=== PATIENT | male | born 1985 | race Caucasian/White ===

== ENCOUNTER 2016-10-20 16:25 | Emergency (ER) | payer OTHER ==
[~2016-10-20] VITALS: Ht 182.9 cm; Wt 81.6 kg
[2016-10-20 17:16] VITALS: BP 137/89
--- NOTE | 2016-10-20 17:20 | NUR ---
[facility] EVALUATING PT IN OVERFLOW.
[2016-10-20 17:24] VITALS: BP 137/89
--- NOTE | 2016-10-20 17:31 | NUR ---
Patient discharged with v/s stable. Written and verbal after care instructions given and explained. Patient alert, oriented and verbalized understanding of instructions. Ambulatory with steady gait. All questions addressed prior to discharge. ID band removed. Patient advised to follow up with PMD. Rx of PEN VK AND TYLENOL NO 3 given. Patient educated on indication of medication including possible reaction and side effects. Opportunity to ask questions provided and answered.
== END 2016-10-20 17:30 | disposition home or self-care (01) ==
LOC: MED 16:25
DX: K08.89 Other specified disorders of teeth and supporting structures (principal); Z86.19 Personal history of other infectious and parasitic diseases
CPT/HCPCS: 99283

== ENCOUNTER 2019-08-27 22:03 | Emergency (ER) | payer OTHER ==
[~2019-08-27] VITALS: Ht 182.9 cm; Wt 76.2 kg
[2019-08-27 22:11] VITALS: BP 126/83
[2019-08-27] MEDS ORDERED: NACL 0.9% 1,000 ML IV ONE (22:30)
[2019-08-27 22:58] LABS: BASOPHILS # (AUTO) 0.1 K/uL (0.00-0.22); EOSINOPHILS # (AUTO) 0.1 K/uL (0-0.4); EOSINOPHILS % (AUTO) 1.2 % (0.0-4.0); HEMATOCRIT 36.4 % (36-52); HEMOGLOBIN 12.1 g/dL (12.0-18.0); LYMPHOCYTES # (AUTO) 0.8 K/uL (2.0-11.5); MEAN CORPUSCULAR HEMOGLOBIN 30 pg (27-31); MEAN CORPUSCULAR HGB CONC 33 g/dL (33-37); MEAN CORPUSCULAR VOLUME 89.4 fL (80-94); MONOCYTES # (AUTO) 0.8 K/uL (0.8-1.0); MONOCYTES % (AUTO) 8.4 % (1.7-9.3); NEUTROPHILS # (AUTO) 7.5 K/uL (1.8-7.7); NEUTROPHILS % (AUTO) 80.6 % (42.2-75.2); PLATELET COUNT (AUTO) 194 K/uL (140-450); RED BLOOD CELL COUNT(AUTO) 4.07 MIL/uL (4.20-6.10); RED CELL DISTRIBUTION WIDTH 13.4 % (11.6-13.7); WHITE BLOOD COUNT (AUTO) 9.2 K/uL (4.8-10.8)
[2019-08-27 23:10] LABS: ALBUMIN 3.3 g/dL (3.4-5.0); ANION GAP 9.7 (8-16); CARBON DIOXIDE 28.4 mmol/L (21-32); CREATININE 1.1 mg/dL (0.6-1.3); POTASSIUM 5.1 mmol/L (3.5-5.1); TOTAL BILIRUBIN 0.3 mg/dL (0.0-1.0)
[2019-08-27 23:12] LABS: LYMPHOCYTES % (AUTO) 8.8 % (20.5-51.1)
[2019-08-27 23:19] LABS: CREATINE KINASE MB 6.7 ng/mL (0-3.6)
[2019-08-28] MEDS ORDERED: NACL 0.9% 1,000 ML IV ONE (00:05)
[2019-08-28 00:31] LABS: BARBITURATE, URINE NEGATIVE ng/ml (NEG <=200); BENZODIAZEPINE, URINE NEGATIVE ng/mL (NEG <=200); CANNABINOID, URINE NEGATIVE ng/mL (NEG <=50); COCAINE, URINE NEGATIVE ng/mL (NEG <=300); OPIATE, URINE NEGATIVE ng/mL (NEG <=2000); PHENCYCLIDINE SCREEN,URINE NEGATIVE ng/mL (NEG <=25)
[2019-08-28 01:22] VITALS: BP 126/83
== END 2019-08-28 01:19 | disposition home or self-care (01) ==
LOC: MED 22:03
DX: M62.82 Rhabdomyolysis (principal); J06.9 Acute upper respiratory infection, unspecified; E86.0 Dehydration; I51.9 Heart disease, unspecified
CPT/HCPCS: 36415; 71045; 80053; 80305; 82550; 82553; 83690; 84484; 85025; 85379; 87804; 93005; 96360; 99285; J7030; Q0092

== ENCOUNTER 2023-08-03 20:04 | Emergency (ER) | payer OTHER ==
[~2023-08-03] VITALS: Ht 182.9 cm; Wt 68.0 kg
[2023-08-03 20:08] VITALS: BP 109/74; PULSE 69; RESP 16; TEMP 97.3; O2SAT 98
== END 2023-08-04 00:22 | disposition left against medical advice (07) ==
LOC: MED 20:04
DX: R00.2 Palpitations (principal); Z53.21 Procedure and treatment not carried out due to patient leaving prior to being seen by health care provider
CPT/HCPCS: 93005; 99281

== ENCOUNTER 2023-11-23 11:55 | Emergency (ER) | payer OTHER ==
[~2023-11-23] VITALS: Ht 182.9 cm; Wt 62.6 kg
[2023-11-23 12:13] VITALS: BP 107/68; PULSE 59; RESP 18; TEMP 97; O2SAT 100
[2023-11-23 13:32] LABS: HEMOGLOBIN 13.6 g/dL (12.0-18.0); MEAN CORPUSCULAR HEMOGLOBIN 28 pg (27-31); MEAN CORPUSCULAR HGB CONC 34 g/dL (33-37); MEAN CORPUSCULAR VOLUME 83.4 fL (80-94); PLATELET COUNT (AUTO) 173 K/uL (140-450); RED BLOOD CELL COUNT(AUTO) 4.79 MIL/uL (4.20-6.10); RED CELL DISTRIBUTION WIDTH 13.5 % (11.6-13.7)
[2023-11-23 13:43] LABS: ANION GAP 11.2 (8-16); CALCIUM 9.3 mg/dL (8.5-10.1); CARBON DIOXIDE 28.2 mmol/L (21-32); CREATININE 0.7 mg/dL (0.6-1.3); POTASSIUM 4.4 mmol/L (3.5-5.1)
[2023-11-23 13:58] LABS: CREATINE KINASE, TOTAL 67 U/L (39-308); MAGNESIUM 2.1 mg/dL (1.8-2.4); PHOSPHORUS 3.7 mg/dL (2.5-4.9); THYROID STIMULATING HORMONE 2.17 uIU/mL (0.34-3.74)
[2023-11-23 14:21] VITALS: BP 133/76; PULSE 81; RESP 18; TEMP 98; O2SAT 99
[2023-11-23 14:27] LABS: EOSINOPHILS % (MANUAL) 1 % (0-4); LYMPHOCYTES % (MANUAL) 23 % (20-46)
[2023-11-23 14:28] LABS: MONOCYTES % (MANUAL) 10 % (5-12); PLATELET ESTIMATE ADEQUATE
== END 2023-11-23 14:21 | disposition home or self-care (01) ==
LOC: MED 11:55
DX: R00.2 Palpitations (principal); R06.02 Shortness of breath; E86.0 Dehydration; Z86.79 Personal history of other diseases of the circulatory system
CPT/HCPCS: 36415; 80048; 82550; 83735; 84100; 84443; 84484; 85025; 93005; 99284

== ENCOUNTER 2023-12-07 03:41 | Emergency (ER) | payer OTHER ==
[~2023-12-07] VITALS: Ht 182.9 cm; Wt 67.1 kg
[2023-12-07 03:52] VITALS: BP 113/75; PULSE 68; RESP 14; TEMP 97.5; O2SAT 99
[2023-12-07 03:59] VITALS: RESP 14; TEMP 97.5
[2023-12-07 04:05] VITALS: O2SAT 99
[2023-12-07 04:44] VITALS: BP 110/72; PULSE 60
== END 2023-12-07 04:44 | disposition home or self-care (01) ==
LOC: MED 03:41
DX: R00.2 Palpitations (principal); R07.9 Chest pain, unspecified; F14.90 Cocaine use, unspecified, uncomplicated; Z79.899 Other long term (current) drug therapy
CPT/HCPCS: 93005; 99283

== ENCOUNTER 2023-12-26 23:25 | Emergency (ER) | payer OTHER ==
[~2023-12-26] VITALS: Ht 182.9 cm; Wt 72.6 kg
[2023-12-26 23:29] VITALS: BP 111/75; PULSE 61; RESP 16; TEMP 97.1; O2SAT 98
[2023-12-27 00:27] LABS: BASOPHILS # (AUTO) 0.1 K/uL (0.00-0.22); BASOPHILS % (AUTO) 0.9 % (0.0-2.0); EOSINOPHILS # (AUTO) 0.1 K/uL (0-0.4); EOSINOPHILS % (AUTO) 2.3 % (0.0-4.0); HEMOGLOBIN 13.4 g/dL (12.0-18.0); LYMPHOCYTES # (AUTO) 1.7 K/uL (2.0-11.5); LYMPHOCYTES % (AUTO) 28.8 % (20.5-51.1); MEAN CORPUSCULAR HEMOGLOBIN 28 pg (27-31); MEAN CORPUSCULAR HGB CONC 33 g/dL (33-37); MONOCYTES # (AUTO) 0.4 K/uL (0.8-1.0); MONOCYTES % (AUTO) 7.3 % (1.7-9.3); NEUTROPHILS # (AUTO) 3.6 K/uL (1.8-7.7); NEUTROPHILS % (AUTO) 60.7 % (42.2-75.2); PLATELET COUNT (AUTO) 164 K/uL (140-450); RED BLOOD CELL COUNT(AUTO) 4.82 MIL/uL (4.20-6.10); WHITE BLOOD COUNT (AUTO) 5.9 K/uL (4.8-10.8)
[2023-12-27 00:38] LABS: ANION GAP 13.5 (8-16); CALCIUM 9.2 mg/dL (8.5-10.1); CARBON DIOXIDE 27.2 mmol/L (21-32); CREATININE 0.8 mg/dL (0.6-1.3); POTASSIUM 3.7 mmol/L (3.5-5.1)
[2023-12-27 00:46] LABS: PHOSPHORUS 4.1 mg/dL (2.5-4.9)
[2023-12-27 01:08] VITALS: BP 111/75; PULSE 61; RESP 16; TEMP 97.1; O2SAT 96
== END 2023-12-27 01:08 | disposition home or self-care (01) ==
LOC: MED 23:25
DX: R00.2 Palpitations (principal); R07.9 Chest pain, unspecified; F14.10 Cocaine abuse, uncomplicated; R53.1 Weakness; R42 Dizziness and giddiness; R11.0 Nausea; R06.02 Shortness of breath; Z86.79 Personal history of other diseases of the circulatory system
CPT/HCPCS: 36415; 71045; 80048; 83735; 84100; 84484; 85025; 93005; 99285; Q0092

== ENCOUNTER 2024-02-22 22:50 | Emergency (ER) | payer OTHER ==
[~2024-02-22] VITALS: Ht 182.9 cm; Wt 64.6 kg
[2024-02-22 22:55] VITALS: BP 104/67; PULSE 74; RESP 20; TEMP 98.3; O2SAT 98
[2024-02-23 00:45] LABS: BASOPHILS # (AUTO) 0.2 K/uL (0.00-0.22); BASOPHILS % (AUTO) 4.2 % (0.0-2.0); EOSINOPHILS # (AUTO) 0.2 K/uL (0-0.4); EOSINOPHILS % (AUTO) 4.1 % (0.0-4.0); HEMOGLOBIN 13.8 g/dL (12.0-18.0); LYMPHOCYTES % (AUTO) 18.2 % (20.5-51.1); MEAN CORPUSCULAR HEMOGLOBIN 30 pg (27-31); MEAN CORPUSCULAR HGB CONC 35 g/dL (33-37); MEAN CORPUSCULAR VOLUME 85.6 fL (80-94); MONOCYTES # (AUTO) 0.5 K/uL (0.8-1.0); MONOCYTES % (AUTO) 8.2 % (1.7-9.3); NEUTROPHILS # (AUTO) 3.6 K/uL (1.8-7.7); NEUTROPHILS % (AUTO) 65.3 % (42.2-75.2); PLATELET COUNT (AUTO) 223 K/uL (140-450); RED BLOOD CELL COUNT(AUTO) 4.67 MIL/uL (4.20-6.10); RED CELL DISTRIBUTION WIDTH 15.4 % (11.6-13.7); WHITE BLOOD COUNT (AUTO) 5.5 K/uL (4.8-10.8)
[2024-02-23 00:45] LABS: APPEARANCE,URINE CLEAR (CLEAR); BILIRUBIN,URINE NEGATIVE (NEGATIVE); BLOOD, URINE NEGATIVE (NEGATIVE); COLOR,URINE YELLOW (YELLOW); LEUKOCYTE ESTERASE ,URINE NEGATIVE (NEGATIVE); NITRITE, URINE NEGATIVE (NEGATIVE); PROTEIN,URINE NEGATIVE (NEGATIVE); UGLUCOSE NEGATIVE (NEGATIVE); UROBILINOGEN,URINE 0.2 EU/dL (0.2 - 1)
[2024-02-23 00:54] LABS: ANION GAP 13.9 (8-16); CALCIUM 8.9 mg/dL (8.5-10.1); CARBON DIOXIDE 29.1 mmol/L (21-32); CREATININE 0.9 mg/dL (0.6-1.3)
[2024-02-23 01:01] LABS: ALBUMIN 3.9 g/dL (3.4-5.0); BILIRUBIN,DIRECT 0.2 mg/dL (0.0-0.3); TOTAL BILIRUBIN 0.8 mg/dL (0.0-1.0); TOTAL PROTEIN, SERUM 7.1 g/dL (6.4-8.2)
[2024-02-23 04:00] VITALS: BP 121/78; PULSE 80; RESP 18; TEMP 98; O2SAT 98
[2024-02-23] MEDS ORDERED: MIRABULK PO (04:58)
== END 2024-02-23 05:25 | disposition home or self-care (01) ==
LOC: MED 22:50
DX: K59.00 Constipation, unspecified (principal); R10.30 Lower abdominal pain, unspecified; Z79.899 Other long term (current) drug therapy
CPT/HCPCS: 36415; 74177; 80048; 80076; 81003; 83690; 85025; 99285; Q9967